=== PATIENT | male | born 1990 | race Hispanic/Latino ===

== ENCOUNTER 2017-06-07 14:50 | Emergency (ER) | payer BC ==
[2017-06-07 15:00] VITALS: BP 122/50; PULSE 64; RESP 18; TEMP 97.9; O2SAT 99
--- NOTE | 2017-06-07 15:17 | ED PDOC ---
Upper Extremity Pain/Injury Time Seen by Provider: 06/07/17 15:07 Chief Complaint (Nursing): Upper Extremity Problem/Injury Chief Complaint (Provider): ARM PAIN History Per: Patient History/Exam Limitations: no limitations Onset/Duration Of Symptoms: Days Current Symptoms Are (Timing): Better Exacerbating Factor(s): Strenuous Use Of Affected Area Additional Complaint(s): 27 year old male states 10 days ago he fell and had right elbow dislocation was seen at hospital in [place]. He has orthopedic follow up. He comes to ED today because he noticed the bruising and swelling is spreading down forearm to wrist. Denies any limited movement to wrist and hand and no numbness. Past Medical History Reviewed: Historical Data, Nursing Documentation, Vital Signs Vital Signs: Last Vital Signs Temp 97.9 F 06/07/17 14:57 Pulse 64 06/07/17 14:57 Resp 18 06/07/17 14:57 BP 122/50 L 06/07/17 14:57 Pulse Ox 99 06/07/17 14:57 - Medical History PMH: No Chronic Diseases - Family History Family History: States: Unknown Family Hx - Living Arrangements Living Arrangements: With Family - Allergies Allergies/Adverse Reactions: Allergies Allergy/AdvReac Type Severity Reaction Status Date / Time No Known Allergies Allergy Verified 06/07/17 14:57 Review of Systems ROS Statement: Except As Marked, All Systems Reviewed And Found Negative Musculoskeletal: Positive for: Arm Pain (right) Physical Exam - Reviewed Nursing Documentation Reviewed: Yes Vital Signs Reviewed: Yes - Physical Exam Appears: Positive for: Well, Non-toxic, No Acute Distress Head Exam: Positive for: ATRAUMATIC, NORMAL INSPECTION, NORMOCEPHALIC Skin: Positive for: Warm, Dry Eye Exam: Positive for: Normal appearance Neck: Positive for: Normal, Painless ROM Pulses-Radial (R): 2+ Extremity: Positive for: Other (Right arm: swelling and ecchymosis to posterior arm and lateral elbow with some bruising spreading into forearm and distal wrist. Normal ROM to elbow wrist and hand. No tendnerness to wrist. ) - ECG O2 Sat by Pulse Oximetry: 99 Medical Decision Making Medical Decision Making: Patient asking about bruising to wrist from elbow injury 10 days prior, no new injury. Patient has ecchymosis and swelling to arm, he has a sling. No new injury and no wrist tenderness, numbness or weakness. Xray not indicated. Reassure patient and instruct to follow up with his orthopedic Disposition - Clinical Impression Clinical Impression: H/O dislocation of elbow, Superficial bruising of arm - Patient ED Disposition Is Patient to be Admitted: No Counseled Patient/Family Regarding: Diagnosis, Need For Followup - Disposition Disposition: Routine/Home Disposition Time: 15:20 Condition: STABLE Additional Instructions: Please take any pain medicine as needed Follow up with your orthopedic for further evaluation. Instructions: Hematoma (ED) - POA Present On Arrival: None
== END 2017-06-07 16:02 | disposition home or self-care (01) ==
LOC: H.ER 14:50
DX: M79.601 Pain in right arm (principal)